=== PATIENT | male | born 1940 | race Caucasian/White ===

== ENCOUNTER 2018-04-23 06:43 | Day surgery (SDC) | payer MEDICARE, OTHER ==
[~2018-04-23] VITALS: Ht 167.6 cm; Wt 60.0 kg
[~2018-04-23 06:43] MED LIST: SODIUM CHLORIDE 0.9% 0 ML IV ONE; SODIUM CHLORIDE 0.9% 1,000 ML IV ONE
[2018-04-23] MEDS ORDERED: ALBUTEROL SULFATE 2.5 MG/0.5 ML NEB SOLUTION NEB ONE (06:44)
[2018-04-23] MEDS ORDERED: BENZOCAINE 20% 50 MCG/SPRAY 57 GM TP ONE (06:44)
[2018-04-23] MEDS ORDERED: LIDOCAINE HCL 4% 50 ML SOLUTION TP ONE (06:44)
[2018-04-23] MEDS ORDERED: LIDOCAINE HCL 2% 30 ML JELLY TP ONE (06:44)
[2018-04-23] MEDS ORDERED: SODIUM CHLORIDE 0.9% 1,000 ML IV ONE (06:52)
[2018-04-23 08:11] LABS: GLUCOMETER DEV NAME(LOC) SDS 5; GLUCOSE,POINT OF CARE 87 MG/DL (70-110)
[2018-04-23] MEDS ORDERED: MIDAZOLAM HCL 2 MG/2 ML VIAL ONE (08:23)
[2018-04-23] MEDS ORDERED: FentaNYL CITRATE-PF 100 MCG/2 ML VIAL ONE (08:23)
[2018-04-23] MEDS ORDERED: MethylPREDNISolone SOD SUCC 125 MG/2 ML VIAL IVP ONE (09:30)
[2018-04-23] MEDS ORDERED: MethylPREDNISolone SOD SUCC 125 MG/2 ML VIAL ONE (09:31)
[2018-04-23] MEDS ORDERED: OXYGEN THERAPY IH SCH (20:00)
== END 2018-04-23 10:25 | disposition home or self-care (01) ==
LOC: SURGERY 06:43
PROVIDERS: ATTEND Internal Medicine Critical Care Medicine
DX: J38.4 Edema of larynx (principal); B37.0 Candidal stomatitis; J39.8 Other specified diseases of upper respiratory tract; J47.9 Bronchiectasis, uncomplicated; E11.9 Type 2 diabetes mellitus without complications; B19.10 Unspecified viral hepatitis B without hepatic coma; J45.998 Other asthma; E78.00 Pure hypercholesterolemia, unspecified; Z79.51 Long term (current) use of inhaled steroids; Z86.11 Personal history of tuberculosis; Z79.84 Long term (current) use of oral hypoglycemic drugs; Z98.41 Cataract extraction status, right eye; Z98.42 Cataract extraction status, left eye; Z98.890 Other specified postprocedural states; Z79.899 Other long term (current) drug therapy
CPT/HCPCS: 31623; 31624; 71045; 82962; 87015; 87070; 87077; 87186; 87205; 87206; 87220; 88108; 88312; J2250; J2930; J3010; J7030

== ENCOUNTER 2019-05-18 06:01 | Day surgery (SDC) | payer MEDICARE, OTHER ==
[~2019-05-18] VITALS: Ht 167.6 cm; Wt 59.5 kg
[~2019-05-18 06:01] MED LIST changes: -SODIUM CHLORIDE 0.9% 0 ML IV ONE
[2019-05-18] MEDS ORDERED: LIDOCAINE 4% 50 ML SOLUTION TP ONE (06:02)
[2019-05-18] MEDS ORDERED: LIDOCAINE 2% 5 ML JELLY TP ONE (06:02)
[2019-05-18] MEDS ORDERED: ALBUTEROL SULFATE 2.5 MG/0.5 ML NEB SOLUTION NEB ONE (06:02)
[2019-05-18] MEDS ORDERED: BENZOCAINE 20% 50 MCG/SPRAY 57 GM TP ONE (06:02)
[2019-05-18] MEDS ORDERED: ATOR10TA84 PO (07:01)
[2019-05-18] MEDS ORDERED: AZIT250T9 PO (07:01)
[2019-05-18] MEDS ORDERED: RIFA300 PO (07:01)
[2019-05-18] MEDS ORDERED: ETHA400 PO (07:01)
[2019-05-18] MEDS ORDERED: METF-960 PO (07:01)
[2019-05-18] MEDS ORDERED: FentaNYL CITRATE-PF 100 MCG/2 ML VIAL ONE (07:48)
[2019-05-18] MEDS ORDERED: MIDAZOLAM HCL 2 MG/2 ML VIAL ONE (07:48)
[2019-05-18 07:51] LABS: GLUCOMETER DEV NAME(LOC) SDS.; GLUCOSE,POINT OF CARE 101 MG/DL (70-110)
[2019-05-18] MEDS ORDERED: MethylPREDNISolone SOD SUCC 125 MG/2 ML VIAL IVP ONE (08:45)
[2019-05-18] MEDS ORDERED: MethylPREDNISolone SOD SUCC 125 MG/2 ML VIAL ONE (08:49)
[2019-05-18] MEDS ORDERED: OXYGEN THERAPY IH SCH (20:00)
== END 2019-05-18 09:45 | disposition home or self-care (01) ==
LOC: SURGERY 06:01
PROVIDERS: ATTEND Internal Medicine Critical Care Medicine
DX: J38.4 Edema of larynx (principal); B37.0 Candidal stomatitis; J45.909 Unspecified asthma, uncomplicated; J98.8 Other specified respiratory disorders; I10 Essential (primary) hypertension; E11.9 Type 2 diabetes mellitus without complications; Z79.899 Other long term (current) drug therapy; Z79.01 Long term (current) use of anticoagulants; Z98.890 Other specified postprocedural states
CPT/HCPCS: 31623; 31624; 71045; 82962; 87015; 87070; 87077; 87101; 87186; 87205; 87206; 87220; 88108; 88312; 93005; J2250; J2930; J3010; J7030

== ENCOUNTER 2020-06-29 06:15 | Day surgery (SDC) | payer OTHER ==
[~2020-06-29] VITALS: Ht 167.6 cm; Wt 57.7 kg
[~2020-06-29 06:15] MED LIST changes: +ATOR10TA84 PO; +AZIT-84 PO; +ETHA400 PO; +METF-960 PO; +RIFA300 PO; -SODIUM CHLORIDE 0.9% 1,000 ML IV ONE
[2020-06-29] MEDS ORDERED: SODIUM CHLORIDE 0.9% 1,000 ML IV ONE (06:30)
[2020-06-29 06:55] LABS: COVID AG,FIA SOURCE NASOPHARYNGEAL
[2020-06-29] MEDS ORDERED: MIDAZOLAM HCL 2 MG/2 ML VIAL ONE (08:11)
[2020-06-29] MEDS ORDERED: FentaNYL CITRATE-PF 100 MCG/2 ML VIAL ONE (08:11)
[2020-06-29] MEDS ORDERED: MethylPREDNISolone SOD SUCC 125 MG/2 ML VIAL IVP ONE (08:45)
[2020-06-29] MEDS ORDERED: MethylPREDNISolone SOD SUCC 125 MG/2 ML VIAL ONE (08:55)
[2020-06-29] MEDS ORDERED: ALBUTEROL SULFATE 2.5 MG/0.5 ML NEB SOLUTION NEB ONE (12:48)
[2020-06-29] MEDS ORDERED: LIDOCAINE 2% 30 ML JELLY TP ONE (12:49)
[2020-06-29] MEDS ORDERED: BENZOCAINE 20% 50 MCG/SPRAY 57 GM TP ONE (12:49)
[2020-06-29] MEDS ORDERED: LIDOCAINE 4% 50 ML SOLUTION TP ONE (12:50)
[2020-06-29] MEDS ORDERED: OXYGEN THERAPY IH SCH (20:00)
== END 2020-06-29 10:05 | disposition home or self-care (01) ==
LOC: SURGERY 06:15
PROVIDERS: ATTEND Internal Medicine Critical Care Medicine
DX: J38.4 Edema of larynx (principal); B37.0 Candidal stomatitis; E78.00 Pure hypercholesterolemia, unspecified; J39.8 Other specified diseases of upper respiratory tract; Z98.890 Other specified postprocedural states; Z20.828 Contact with and (suspected) exposure to other viral communicable diseases
CPT/HCPCS: 31623; 31624; 71045; 87015; 87070; 87101; 87206; 87220; 87426; 88108; 88184; 88185; 88312; C9803; J2250; J2930; J3010; 87205; J7613; Z7610

== ENCOUNTER 2022-08-01 06:16 | Day surgery (SDC) | payer OTHER ==
[~2022-08-01] VITALS: Ht 167.6 cm; Wt 53.6 kg
[~2022-08-01 06:16] MED LIST changes: +ATOR10TA PO; -ATOR10TA84 PO; -AZIT-84 PO; +METF-1211 PO; -METF-960 PO; -RIFA300 PO; +RIFA300C36 PO
[2022-08-01] MEDS ORDERED: LIDOCAINE 2% 11 ML JELLY TP ONE (06:17)
[2022-08-01] MEDS ORDERED: BENZOCAINE 20% 50 MCG/SPRAY 57 GM TP ONE (06:17)
[2022-08-01] MEDS ORDERED: LIDOCAINE 4% 50 ML SOLUTION TP ONE (06:17)
[2022-08-01] MEDS ORDERED: ALBUTEROL SULFATE 2.5 MG/0.5 ML NEB SOLUTION NEB ONE (06:17)
[2022-08-01 06:46] LABS: COVID AG,FIA SOURCE NASAL SWAB
[2022-08-01] MEDS ORDERED: SODIUM CHLORIDE 0.9% 1,000 ML IV ONE (07:00)
[2022-08-01] MEDS ORDERED: SODIUM CHLORIDE 0.9% 1,000 ML ONE (07:06)
[2022-08-01] MEDS ORDERED: MIDAZOLAM HCL 2 MG/2 ML VIAL ONE (08:19)
[2022-08-01] MEDS ORDERED: FentaNYL CITRATE PF 100 MCG/2 ML VIAL ONE (08:19)
[2022-08-01] MEDS ORDERED: MethylPREDNISolone SOD SUCC 125 MG/2 ML VIAL ONE (09:08)
[2022-08-01] MEDS ORDERED: MethylPREDNISolone SOD SUCC 125 MG/2 ML VIAL IVP ONE (09:15)
[2022-08-01] MEDS ORDERED: OXYGEN THERAPY IH SCH (20:00)
== END 2022-08-01 11:00 | disposition home or self-care (01) ==
LOC: SURGERY 06:16
PROVIDERS: ATTEND Internal Medicine Critical Care Medicine
DX: B37.0 Candidal stomatitis (principal); J38.4 Edema of larynx; J39.8 Other specified diseases of upper respiratory tract; I10 Essential (primary) hypertension; E78.00 Pure hypercholesterolemia, unspecified; M19.90 Unspecified osteoarthritis, unspecified site; Z20.822 Contact with and (suspected) exposure to COVID-19
CPT/HCPCS: 31623; 87101; 87220; 36415; 87070; 88108; 88305; 87186; 31624; 71045; 87015; 87305; 87426; 87206; J3010; J2250; J2930; Q9967; J7030; C9803; J7613; Z7610